=== PATIENT | female | born 1995 | race Caucasian/White ===

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

== ENCOUNTER → 2017-02-20 | Day surgery (SDC) | payer OTHER ==
[~2017-02-20] VITALS: Ht 165.1 cm; Wt 106.6 kg
[~2017-02-20] MED LIST changes: +AUGM500T34 PO; +ESMOLOL INJ 100MG/10ML VIAL As Ordered ONE; +GLYCOPYRROLATE INJ 0.2 MG/ML 2 ML VIAL As Ordered ONE; +HYDROmorphone HCL 2 MG/ML 1ML VIAL (J1170) As Ordered ONE; +IBUP-1022 PO; +KETOROLAC 30 MG/ML VIAL (J1885) IV ONE; +LIDOCAINE 2% INJ 100 MG/5 ML SDV (FOR ANES.) As Ordered ONE; +LIDOCAINE 2% W/ EPINEPHRINE 1.7 ML DENTAL INJ As Ordered ONE; +LR 1,000 ML IV ONE; +LR 1,000 ML IV SCH; +MELO7.5T7 PO; +MIDAZOLAM INJ 2 MG/2 ML VIAL (J2250) As Ordered ONE; +NEOSTIGMINE 1MG/ML 5 ML SYRINGE (J2710) As Ordered ONE; +ONDANSETRON 4MG/2ML VIAL (J2405) As Ordered ONE; +ONDANSETRON 4MG/2ML VIAL (J2405) IV PRN; +OXYMETAZOLINE NASAL SPRAY (AFRIN) As Ordered ONE; +PROPOFOL 200 MG/20 ML VIAL As Ordered ONE; +ROCURONIUM BROMIDE 50 MG/5 ML VIAL/SYRINGE As Ordered ONE; +SEVOFLURANE INHAL SOLN 250 ML BTL As Ordered ONE; +dexameTHASONE 4 MG/ML 1ML VIAL (J1100) As Ordered ONE; +fentaNYL 100 MCG/2 ML INJECTION (J3010) As Ordered ONE; +fentaNYL 250 MCG/5 ML INJECTION (J3010) As Ordered ONE
[2017-02-20 10:03] LABS: CONTROL LINE UCG INT CTR LINE PRESENT
[2017-02-20] MEDS: fentaNYL 100 MCG/2 ML INJECTION (J3010) IV PRN ×4 (19:37→20:23)
[2017-02-20 21:30] VITALS: BP 139/65
--- NOTE | 2017-02-21 12:14 | RO ---
DATE OF PROCEDURE: 02/20/2017 PREOPERATIVE DIAGNOSIS: Dental caries. POSTOPERATIVE DIAGNOSIS: Dental caries. PROCEDURE: fillings, root canals, post and core placement, crown prep with temporary crowns placement, sealants, prophy SURGEON: Dhruv Gibson DDS EYE PHYSICIAN: Adolfo ANESTHESIA: General DESCRIPTION OF PROCEDURE: The patient, Sierra Giles, was brought to the operating room without premedication and placed onto the operating table in the supine position. After all monitoring equipment was attached to patient, vital signs were checked and general anesthetic medicaments were delivered via inhalation. Nasal intubation proceeded, and tube extension was secured into position after breathing was monitored. Patient was then prepped and draped for dental surgical procedures. The intraoral cavity was inspected and suctioned free of gross secretions. One large moist throat pack was placed. Prophy of entire dentition completed. Sealant application completed on teeth #28 and 29. Decay removal, followed by composite condensation was completed on the mesial distal and buccal surface of teeth #2, 15 and 22. Occlusal and lingual surface of tooth #3. Mesial distal facial and lingual surface of teeth #6, 26 and 27. Mesial, occlusal, distal buccal and lingual surface of teeth #12 and 13. Distal, occlusal and lingual surface of tooth #14. Mesial occlusal and buccal surface of tooth #18. Mesial occlusal and distal surface of teeth #19 and 20. Distal occlusal surface of tooth #21. Buccal surface of tooth #25. Occlusal, buccal and lingual surface of teeth #30 and 31. Root canal treatment completed on teeth #4, 5 and 9. Post with core placement and cementation completed on teeth #4, 5, 7, 8, 9 and 10. [place] preparation completed on teeth #4, 5, 7, 8, 9, 10. Temporary crowns fabricated and cemented to teeth #4, 5, 7, 8, 9, 10. Fluoride varnish completed on entire dentition. Six radiographs pertaining to root canal procedures only were taken. Final removal of all gross fluids from both intraoral and extraoral structures. Bite block removed. Patient then left by dental team in the care of presiding anesthesiologist. Note, there was continuous removal of all gross fluids throughout the duration of all performed dental procedures. ALTHEA
== END ==
LOC: M SDC 08:44
PROVIDERS: ATTEND Dentist General Practice
DX: K02.9 Dental caries, unspecified (principal); F41.9 Anxiety disorder, unspecified; F84.0 Autistic disorder; G80.9 Cerebral palsy, unspecified; Z79.899 Other long term (current) drug therapy; J30.89 Other allergic rhinitis
CPT/HCPCS: 70310; 84703; D0220; D1351; D2330; D2331; D2332; D2392; D2393; D2952; D3310; D3320; D9223

== ENCOUNTER 2017-04-05 07:09 | Emergency (ER) | payer OTHER ==
[~2017-04-05] VITALS: Ht 165.1 cm; Wt 107.3 kg
[~2017-04-05 07:09] MED LIST changes: -AUGM500T34 PO; -ESMOLOL INJ 100MG/10ML VIAL As Ordered ONE; -GLYCOPYRROLATE INJ 0.2 MG/ML 2 ML VIAL As Ordered ONE; -HYDROmorphone HCL 2 MG/ML 1ML VIAL (J1170) As Ordered ONE; -IBUP-1022 PO; -KETOROLAC 30 MG/ML VIAL (J1885) IV ONE; -LIDOCAINE 2% INJ 100 MG/5 ML SDV (FOR ANES.) As Ordered ONE; -LIDOCAINE 2% W/ EPINEPHRINE 1.7 ML DENTAL INJ As Ordered ONE; -LR 1,000 ML IV ONE; -LR 1,000 ML IV SCH; -MIDAZOLAM INJ 2 MG/2 ML VIAL (J2250) As Ordered ONE; -NEOSTIGMINE 1MG/ML 5 ML SYRINGE (J2710) As Ordered ONE; -ONDANSETRON 4MG/2ML VIAL (J2405) As Ordered ONE; -ONDANSETRON 4MG/2ML VIAL (J2405) IV PRN; -OXYMETAZOLINE NASAL SPRAY (AFRIN) As Ordered ONE; -PROPOFOL 200 MG/20 ML VIAL As Ordered ONE; -ROCURONIUM BROMIDE 50 MG/5 ML VIAL/SYRINGE As Ordered ONE; -SEVOFLURANE INHAL SOLN 250 ML BTL As Ordered ONE; -dexameTHASONE 4 MG/ML 1ML VIAL (J1100) As Ordered ONE; -fentaNYL 100 MCG/2 ML INJECTION (J3010) As Ordered ONE; -fentaNYL 250 MCG/5 ML INJECTION (J3010) As Ordered ONE
[2017-04-05] MEDS ORDERED: MORPHINE 4 MG/ML 1ML SYRINGE IV ONE (07:45)
[2017-04-05] MEDS ORDERED: AMPICILLIN SOD/SULBACTAM SOD 3 GM in D5W MINI-BAG PLUS 100 ML IV ONE (07:45)
[2017-04-05 08:24] LABS: BASO % 0.3 % (0.0-1.0); EOS # 0.2 K/mm3 (0.0-0.50); EOS % 1.6 % (0.0-3.0); LARGE UNSTAINED CELL # 0.1 K/mm3 (0.0-0.4); LARGE UNSTAINED CELL % 0.9 % (0.0-4.0); LYMPH # 1.8 K/mm3 (1.5-6.5); LYMPH % 12.4 % (24.0-44.0); MEAN CORPUSCULAR HEMOGLOBIN 28.1 pg (27.0-33.0); MEAN CORPUSCULAR HGB CONC 33.3 g/dl (32.0-36.5); MEAN CORPUSCULAR VOLUME 84.4 fl (80.0-96.0); MONO # 0.7 K/mm3 (0.0-0.8); MONO % 5.3 % (0.0-5.0); NEUTROPHILS # 10.5 K/mm3 (1.8-7.7); NEUTROPHILS % 79.5 % (36.0-66.0); PLATELET COUNT, AUTOMATED 251 k/mm3 (150-450); RED CELL DISTRIBUTION WIDTH 13.4 % (11.5-14.5); WHITE BLOOD COUNT 13.2 K/mm3 (4.0-10.0)
[2017-04-05 08:45] LABS: ANION GAP 8 MEQ/L (8-16); BLOOD UREA NITROGEN 8 MG/DL (7-18); CALCIUM LEVEL 9.9 MG/DL (8.5-10.1); CARBON DIOXIDE LEVEL 27 MEQ/L (21-32); CHLORIDE LEVEL 105 MEQ/L (98-107); CREATININE FOR GFR 0.66 MG/DL (0.55-1.02); GLUCOSE, FASTING 95 MG/DL (70-105); POTASSIUM SERUM 4.7 MEQ/L (3.5-5.1); SODIUM LEVEL 140 MEQ/L (136-145)
[2017-04-05] MEDS ORDERED: ISOVUE-370 76% 100ML VIAL (Q9967) As Ordered ONE (08:57)
--- NOTE | 2017-04-05 09:47 | REP ---
CT NECK WITH CONTRAST: HISTORY: Facial swelling. CONTRAST: Isovue 370, 75 mL. There is soft tissue thickening along the buccal surface of the anterior and left lateral aspects of the maxilla and anterior body of the left mandible. Stranding is present in the overlying subcutaneous tissue. These findings are consistent with a phlegmon. The naso- and hypopharynx, larynx, and subglottic trachea are normal in appearance. The salivary glands are normal in size and density. An enlarged lymph node 1.4 cm in width is present in the right internal jugular chain at the level of the mookie- and hypopharynx. An enlarged lymph node 1.2 cm in width is present in the left internal jugular chain at the level of the mookie- and hypopharynx. Small lymph nodes less than 1 cm in size are present in the posterior triangles, submandibular and submental areas. The lung apices are clear. The visualized sinuses are clear. There is periapical lucency of several teeth in the maxilla. IMPRESSION: Findings consistent with a phlegmon along the buccal surface of the anterior and left maxilla and anterior body of the left mandible. Signed by Tayo Solitario MD 04/05/2017 10:03 A
[2017-04-05] MEDS ORDERED: IBUP-1022 PO (10:12)
[2017-04-05] MEDS ORDERED: AUGM500T34 PO (10:12)
[2017-04-05] MEDS ORDERED: KETOROLAC 30 MG/ML VIAL (J1885) IV ONE (10:15)
[2017-04-05 10:30] VITALS: BP 129/71
== END 2017-04-05 10:36 | disposition home or self-care (01) ==
LOC: M ED 07:09
DX: K04.7 Periapical abscess without sinus (principal); L02.01 Cutaneous abscess of face; F41.9 Anxiety disorder, unspecified
CPT/HCPCS: 70491; 80048; 81025; 85025; 96374; 96375; 99283; J1885; Q9967

== ENCOUNTER → 2017-07-03 | Outpatient (REF) | payer OTHER ==
[~2017-07-03] MED LIST changes: +AUGM500T34 PO; +IBUP-1022 PO
== END ==
LOC: M SFHCWAGY 15:34
PROVIDERS: ATTEND Nurse Practitioner Family
DX: R30.0 Dysuria (principal)

== ENCOUNTER → 2017-09-29 | Outpatient (CLI) | payer OTHER ==
[2017-09-29 17:28] LABS: BASO % 0.4 % (0.0-1.0); EOS # 0.2 10^3/uL (0.0-0.50); EOS % 1.6 % (0.0-3.0); HEMATOCRIT 44.2 % (36.0-47.0); HEMOGLOBIN 14.2 g/dl (12.0-16.0); IMMATURE GRANULOCYTE % 0.4 % (0-0); LYMPH # 1.8 10^3/uL (1.5-6.5); LYMPH % 18.2 % (24.0-44.0); MEAN CORPUSCULAR HEMOGLOBIN 26.7 pg (27.0-33.0); MEAN CORPUSCULAR HGB CONC 32.1 g/dl (32.0-36.5); MEAN CORPUSCULAR VOLUME 83.1 fl (80.0-96.0); MONO # 0.8 10^3/uL (0.0-0.8); MONO % 8.3 % (0.0-5.0); NEUTROPHILS # 6.9 10^3/uL (1.8-7.7); NEUTROPHILS % 71.1 % (36.0-66.0); PLATELET COUNT, AUTOMATED 320 10^3/uL (150-450); RED BLOOD COUNT 5.32 10^6/uL (4.00-5.40); RED CELL DISTRIBUTION WIDTH 13.1 % (11.5-14.5); WHITE BLOOD COUNT 9.7 10^3/uL (4.0-10.0)
[2017-09-29 17:52] LABS: ALBUMIN 4.3 GM/DL (3.2-5.2); ALKALINE PHOSPHATASE 72 U/L (45-117); ALT/SGPT 32 U/L (12-78); ANION GAP 10 MEQ/L (8-16); AST/SGOT 14 U/L (7-37); BILIRUBIN,TOTAL 0.4 MG/DL (0.2-1.0); BLOOD UREA NITROGEN 14 MG/DL (7-18); CALCIUM LEVEL 9.3 MG/DL (8.5-10.1); CARBON DIOXIDE LEVEL 24 MEQ/L (21-32); CHLORIDE LEVEL 107 MEQ/L (98-107); CREATININE FOR GFR 0.72 MG/DL (0.55-1.30); GLUCOSE, FASTING 81 MG/DL (70-100); LIPASE 95 U/L (73-393); POTASSIUM SERUM 4.6 MEQ/L (3.5-5.1); SODIUM LEVEL 141 MEQ/L (136-145); TOTAL PROTEIN 8.2 GM/DL (6.4-8.2)
== END ==
LOC: M WUC 12:25
DX: R10.9 Unspecified abdominal pain (principal)
CPT/HCPCS: 83690

== ENCOUNTER → 2018-01-27 | Outpatient (CLI) | payer OTHER ==
[2018-01-28 14:13] LABS: TISSUE TRANSGLUTAMINASE IgA 5 U/mL (0-3)
[2018-02-04 00:10] LABS: DQ2(DQ1A 0501/0505,DQB1 02XX) Positive (.); DQ8(DQA1 03XX, DQB1 0302) Negative (.); IGASUB3 16.9 mg/dL (13.4-97.9); IgA SERUM (part of Subclasses) 194 mg/dL (87-352)
== END ==
LOC: M LAB 09:39
DX: K90.0 Celiac disease (principal); B96.81 Helicobacter pylori [H. pylori] as the cause of diseases classified elsewhere
CPT/HCPCS: 82784

== ENCOUNTER 2018-04-01 13:41 | Emergency (ER) | payer OTHER | END 2018-04-01 15:27 | disposition home or self-care (01) | LOC: M ED 13:41 | DX: S93.402A Sprain of unspecified ligament of left ankle, initial encounter (principal); X50.9XXA Other and unspecified overexertion or strenuous movements or postures, initial encounter; Y92.832 Beach as the place of occurrence of the external cause; G80.9 Cerebral palsy, unspecified; F41.9 Anxiety disorder, unspecified; Z79.3 Long term (current) use of hormonal contraceptives | CPT/HCPCS: 73610 ==

== ENCOUNTER → 2018-06-10 | Outpatient (REF) | payer OTHER | LOC: M LAB REF 10:16 | DX: N30.01 Acute cystitis with hematuria (principal) | CPT/HCPCS: 87186 ==

== ENCOUNTER → 2018-08-07 | Outpatient (CLI) | payer OTHER | LOC: M LAB 10:30 | DX: B96.81 Helicobacter pylori [H. pylori] as the cause of diseases classified elsewhere (principal) ==

== ENCOUNTER 2018-08-13 10:39 | Emergency (ER) | payer OTHER ==
[2018-08-13] MEDS: METOCLOPRAMIDE INJ 10MG/2ML VIAL (J2765) IV (11:32)
[2018-08-13] MEDS: ACETAMINOPHEN 325 MG TAB PO (11:32)
[2018-08-13] MEDS: NS 1,000 ML IV (11:32)
[2018-08-13 11:53] LABS: BASO % 0.3 % (0.0-1.0); EOS # 0.1 10^3/uL (0.0-0.50); HEMATOCRIT 40.4 % (36.0-47.0); HEMOGLOBIN 13.1 g/dl (12.0-15.5); IMMATURE GRANULOCYTE % 0.6 % (0-3.0); LYMPH # 1.8 10^3/uL (1.5-6.5); LYMPH % 17.2 % (24.0-44.0); MEAN CORPUSCULAR HEMOGLOBIN 27.1 pg (27.0-33.0); MEAN CORPUSCULAR HGB CONC 32.4 g/dl (32.0-36.5); MEAN CORPUSCULAR VOLUME 83.6 fl (80.0-96.0); MONO # 0.7 10^3/uL (0.0-0.8); MONO % 7.2 % (0.0-5.0); NEUTROPHILS # 7.6 10^3/uL (1.8-7.7); NEUTROPHILS % 73.7 % (36.0-66.0); PLATELET COUNT, AUTOMATED 242 10^3/uL (150-450); RED BLOOD COUNT 4.83 10^6/uL (4.00-5.40); RED CELL DISTRIBUTION WIDTH 13.2 % (11.5-14.5); WHITE BLOOD COUNT 10.3 10^3/uL (4.0-10.0)
[2018-08-13 12:17] LABS: ANION GAP 7 MEQ/L (8-16); BLOOD UREA NITROGEN 10 MG/DL (7-18); CALCIUM LEVEL 8.6 MG/DL (8.5-10.1); CARBON DIOXIDE LEVEL 26 MEQ/L (21-32); CHLORIDE LEVEL 110 MEQ/L (98-107); CREATININE FOR GFR 0.74 MG/DL (0.55-1.30); GLOMERULAR FILTRATION RATE > 60.0 (>60); GLUCOSE, FASTING 88 MG/DL (70-100); POTASSIUM SERUM 4.1 MEQ/L (3.5-5.1); SODIUM LEVEL 143 MEQ/L (136-145)
== END 2018-08-13 12:35 | disposition home or self-care (01) ==
LOC: M ED 10:39
DX: G43.909 Migraine, unspecified, not intractable, without status migrainosus (principal); G80.9 Cerebral palsy, unspecified; Z79.1 Long term (current) use of non-steroidal anti-inflammatories (NSAID)
CPT/HCPCS: J2765

== ENCOUNTER → 2018-08-13 | Outpatient (REF) | payer OTHER ==
[~2018-08-13] MED LIST changes: +FIBEPOW PO; +LORA-243 PO; -LORA10TA2 PO; +MEDR1VL IM; +ZOFR4TAB14 PO
== END ==
LOC: M LAB REF 10:14
PROVIDERS: ATTEND Internal Medicine Gastroenterology
DX: G43.909 Migraine, unspecified, not intractable, without status migrainosus (principal); B96.81 Helicobacter pylori [H. pylori] as the cause of diseases classified elsewhere

== ENCOUNTER 2018-11-03 01:35 | Emergency (ER) | payer OTHER ==
[~2018-11-03] VITALS: Ht 165.1 cm; Wt 119.5 kg
[2018-11-03 01:37] VITALS: BP 175/74
[2018-11-03] MEDS ORDERED: MAGIC MOUTHWASH SUSPENSION BTL SSP ONE (05:00)
[2018-11-03] MEDS ORDERED: L-LY500T PO (05:06)
[2018-11-03] MEDS ORDERED: MAGICMW SSP (05:06)
[2018-11-04] MEDS ORDERED: LORA-243 (01:55)
[2018-11-04] MEDS ORDERED: AUGM500T34 PO (04:19)
[2018-11-05] MEDS ORDERED: AUGM875T28 PO (20:23)
== END 2018-11-03 05:28 | disposition home or self-care (01) ==
LOC: M ED 01:35
DX: K12.0 Recurrent oral aphthae (principal)

== ENCOUNTER 2018-11-04 01:47 | Emergency (ER) | payer OTHER ==
[~2018-11-04] VITALS: Ht 165.1 cm; Wt 54.3 kg
[2018-11-04 01:47] VITALS: BP 141/82
[~2018-11-04 01:47] MED LIST changes: +L-LY500T PO; +MAGICMW SSP
[2018-11-04] MEDS ORDERED: LORA-243 (01:55)
[2018-11-04] MEDS ORDERED: CETACAINE SPRAY 5GM TOP ONE (02:45)
[2018-11-04] MEDS ORDERED: BUPIVACAINE LIPOSOME/PF 1.3% 20ML VIAL (13.3MG/ML)(EXPAREL)(C9290 PER1MG) INFIL ONE (02:45)
[2018-11-04] MEDS ORDERED: AUGM500T34 PO (04:19)
[2018-11-05] MEDS ORDERED: AUGM875T28 PO (20:23)
== END 2018-11-04 04:26 | disposition home or self-care (01) ==
LOC: M ED 01:47
DX: K08.89 Other specified disorders of teeth and supporting structures (principal); G31.84 Mild cognitive impairment of uncertain or unknown etiology; F84.0 Autistic disorder
CPT/HCPCS: 64400; 99282; C9290

== ENCOUNTER → 2018-12-01 | Outpatient (REF) | payer OTHER ==
[~2018-12-01] MED LIST changes: +AUGM875T28 PO; +LORA-243
[2018-12-01 13:31] LABS: ALBUMIN 4.1 GM/DL (3.2-5.2); ALT/SGPT 37 U/L (12-78); BILIRUBIN,TOTAL 0.3 MG/DL (0.2-1.0); BLOOD UREA NITROGEN 16 MG/DL (7-18); CALCIUM LEVEL 9.5 MG/DL (8.5-10.1); CARBON DIOXIDE LEVEL 23 MEQ/L (21-32); CHLORIDE LEVEL 108 MEQ/L (98-107); CHOLESTEROL LEVEL 169 MG/DL (<200); CHOLESTEROL RISK RATIO 5.633 (<5); CREATININE FOR GFR 0.66 MG/DL (0.55-1.30); GLOMERULAR FILTRATION RATE > 60.0 (>60); GLUCOSE, FASTING 92 MG/DL (70-100); HDL CHOLESTEROL 30 MG/DL (>40); LDL CHOLESTEROL 121 MG/DL (<100); NON-HDL-C 139 MG/DL; POTASSIUM SERUM 4.4 MEQ/L (3.5-5.1); SODIUM LEVEL 138 MEQ/L (136-145); TOTAL PROTEIN 7.9 GM/DL (6.4-8.2); TRIGLYCERIDES LEVEL 88 MG/DL (<150)
== END ==
LOC: M LAB REF 12:09
PROVIDERS: ATTEND Family Medicine Addiction Medicine
DX: Z00.01 Encounter for general adult medical examination with abnormal findings (principal); E66.01 Morbid (severe) obesity due to excess calories

== ENCOUNTER → 2019-01-05 | Outpatient (CLI) | payer OTHER ==
--- NOTE | 2019-01-05 13:09 | REP ---
RIGHT ANKLE, FOUR VIEWS: HISTORY: Pain. There is no acute fracture or dislocation. The joint space is normal in appearance. IMPRESSION: There is no acute fracture or dislocation. Electronically Signed by Tayo Solitario MD 01/05/2019 01:19 P
== END ==
LOC: M WUC 12:25
PROVIDERS: ATTEND Physician Assistant
DX: M25.571 Pain in right ankle and joints of right foot (principal)

== ENCOUNTER → 2019-02-14 | Outpatient (REF) | payer OTHER ==
[~2019-02-14] MED LIST changes: +AZEL1SPR3; +KETO10TAB PO; +MONT10TA2
== END ==
LOC: M LAB REF 14:39
PROVIDERS: ATTEND Physician Assistant
DX: J00 Acute nasopharyngitis [common cold] (principal)

== ENCOUNTER 2019-02-17 19:29 | Emergency (ER) | payer OTHER ==
[~2019-02-17] VITALS: Ht 162.6 cm; Wt 117.7 kg
[~2019-02-17 19:29] MED LIST changes: -AZEL1SPR3; -KETO10TAB PO; -MONT10TA2
[2019-02-17] MEDS ORDERED: AZEL1SPR3 (19:34)
[2019-02-17] MEDS ORDERED: MONT10TA2 (19:34)
[2019-02-17] MEDS ORDERED: KETOROLAC TROMETHAMINE 10 MG TAB PO ONE (21:00)
[2019-02-17] MEDS ORDERED: AUGMENTIN 875 MG TAB PO ONE (21:00)
[2019-02-17] MEDS ORDERED: AUGM875T28 PO (21:00)
[2019-02-17] MEDS ORDERED: KETO10TAB PO (21:00)
[2019-02-17 21:09] VITALS: BP 138/78
== END 2019-02-17 21:22 | disposition home or self-care (01) ==
LOC: M ED 19:29
DX: K04.7 Periapical abscess without sinus (principal); G80.9 Cerebral palsy, unspecified; R51 Headache; F41.9 Anxiety disorder, unspecified

== ENCOUNTER → 2019-05-02 | Outpatient (CLI) | payer OTHER ==
[~2019-05-02] MED LIST changes: +AZEL1SPR3; +KETO10TAB PO; -L-LY500T PO; +L-LY500T15 PO; +MONT10TA2
[2019-05-02 12:01] LABS: BASO % 0.5 % (0.0-1.0); EOS # 0.1 10^3/uL (0.0-0.5); EOS % 1.8 % (0.0-3.0); HEMATOCRIT 41.7 % (36.0-47.0); HEMOGLOBIN 13.3 g/dl (12.0-15.5); LYMPH # 1.9 10^3/uL (1.5-5.0); LYMPH % 31.3 % (24.0-44.0); MEAN CORPUSCULAR HEMOGLOBIN 27.1 pg (27.0-33.0); MEAN CORPUSCULAR HGB CONC 31.9 g/dl (32.0-36.5); MEAN CORPUSCULAR VOLUME 84.9 fl (80.0-96.0); MONO # 0.5 10^3/uL (0.0-0.8); MONO % 7.4 % (0.0-5.0); NEUTROPHILS # 3.6 10^3/uL (1.5-8.5); NEUTROPHILS % 58.7 % (36.0-66.0); PLATELET COUNT, AUTOMATED 287 10^3/uL (150-450); RED BLOOD COUNT 4.91 10^6/uL (4.00-5.40); WHITE BLOOD COUNT 6.1 10^3/uL (4.0-10.0)
[2019-05-02 12:59] LABS: HEMOGLOBIN A1c 5.4 %
[2019-05-02 19:15] LABS: ALBUMIN 3.6 GM/DL (3.2-5.2); ALT/SGPT 43 U/L (12-78); BILIRUBIN,TOTAL 0.5 MG/DL (0.2-1.0); BLOOD UREA NITROGEN 9 MG/DL (7-18); CALCIUM LEVEL 9.2 MG/DL (8.5-10.1); CARBON DIOXIDE LEVEL 24 MEQ/L (21-32); CHLORIDE LEVEL 113 MEQ/L (98-107); CHOLESTEROL LEVEL 124 MG/DL (<200); CREATININE FOR GFR 0.78 MG/DL (0.55-1.30); FREE T4 1.04 NG/DL (0.76-1.46); GLOMERULAR FILTRATION RATE > 60.0 (>60); GLUCOSE, FASTING 79 MG/DL (70-100); HDL CHOLESTEROL 25 MG/DL (>40); LDL CHOLESTEROL 86 MG/DL (<100); NON-HDL-C 99 MG/DL; POTASSIUM SERUM 4.1 MEQ/L (3.5-5.1); SODIUM LEVEL 143 MEQ/L (136-145); THYROID STIMULATING HORMONE 0.937 uIU/ML (0.358-3.740); TRIGLYCERIDES LEVEL 67 MG/DL (<150)
[2019-05-04 15:34] LABS: TOTAL 25(OH) VITAMIN D 24.5 NG/ML (30.0-100.0)
== END ==
LOC: M LAB 10:51
PROVIDERS: ATTEND Physician Assistant
DX: Z00.01 Encounter for general adult medical examination with abnormal findings (principal)

== ENCOUNTER 2019-07-24 16:38 | Emergency (ER) | payer OTHER ==
[~2019-07-24] VITALS: Ht 157.5 cm; Wt 116.2 kg
[2019-07-24 16:38] VITALS: BP 159/78
[2019-07-24] MEDS ORDERED: FLUO20CA19 (16:43)
[2019-07-24] MEDS ORDERED: KETOROLAC TROMETHAMINE 10 MG TAB PO ONE (17:15)
[2019-07-24] MEDS ORDERED: BACLOFEN 10 MG TAB PO ONE (17:15)
[2019-07-24] MEDS ORDERED: CYCL10TA PO (17:53)
[2019-07-24] MEDS ORDERED: NAPR-837 PO (17:53)
== END 2019-07-24 18:00 | disposition home or self-care (01) ==
LOC: M ED 16:38
DX: S23.3XXA Sprain of ligaments of thoracic spine, initial encounter (principal); S33.5XXA Sprain of ligaments of lumbar spine, initial encounter; E66.9 Obesity, unspecified; W08.XXXA Fall from other furniture, initial encounter; Y92.9 Unspecified place or not applicable; Y93.9 Activity, unspecified; Y99.9 Unspecified external cause status; G89.29 Other chronic pain; M54.9 Dorsalgia, unspecified; R51 Headache; F41.9 Anxiety disorder, unspecified; Z79.899 Other long term (current) drug therapy

== ENCOUNTER 2020-08-23 15:49 | Emergency (ER) | payer OTHER ==
[~2020-08-23] VITALS: Ht 162.6 cm; Wt 118.7 kg
[~2020-08-23 15:49] MED LIST changes: +CYCL-707 PO; +DEXT350P PO; -FIBEPOW PO; +FLUO20CA22; -MONT10TA2; +MONT5TAB2; +NAPR-837 PO
[2020-08-23] MEDS ORDERED: LAMO25TA4 PO (15:55)
[2020-08-23] MEDS ORDERED: DEPO150I12 IM (15:55)
[2020-08-23] MEDS ORDERED: VITA200015 PO (15:55)
[2020-08-23] MEDS ORDERED: KETOROLAC 60MG 2ML VIAL IM ONE (17:30)
[2020-08-23] MEDS ORDERED: LIDOCAINE 5% (LIDODERM) PATCH TD ONE (17:30)
[2020-08-23] MEDS ORDERED: methocarbamoL 750 MG TAB PO ONE (17:30)
--- NOTE | 2020-08-23 17:59 | REP ---
INDICATION: fall months ago, persistant pain. COMPARISON: Comparison radiographs are from October 22, 2011.. TECHNIQUE: Five views. FINDINGS: Lumbar vertebral body heights are preserved. Alignment is normal. Pedicles and posterior elements are intact. There is no evidence of spondylolysis or spondylolisthesis. No fracture or collapse is seen. Disc spaces are maintained. Psoas margins are symmetric. Sacrum and SI joints are unremarkable. IMPRESSION: Negative lumbar spine radiographs. <Electronically signed by Matt Lema > 08/23/20 [id number]
--- NOTE | 2020-08-23 18:00 | REP ---
INDICATION: fall months ago, persistant pain. COMPARISON: Comparison radiographs October 22, 2011.. TECHNIQUE: Three views. FINDINGS: Thoracic vertebral body heights are preserved. Alignment is normal. Pedicles and posterior elements are intact. No paravertebral soft tissue hematoma is seen. Disc spaces are maintained. IMPRESSION: Negative thoracic spine radiographs. No fracture seen. <Electronically signed by Matt Lema > 08/23/20 [id number]
[2020-08-23] MEDS ORDERED: ASPE4PAD TOP (18:40)
[2020-08-23 18:45] VITALS: BP 127/82
[2020-08-23] MEDS ORDERED: **NOTE PATIENT COMMENT** MISC XX SCH (21:00)
== END 2020-08-23 18:52 | disposition home or self-care (01) ==
LOC: M ED 15:49
DX: M54.9 Dorsalgia, unspecified (principal); G80.9 Cerebral palsy, unspecified; R51.9 Headache, unspecified; Z79.899 Other long term (current) drug therapy; Z79.3 Long term (current) use of hormonal contraceptives
CPT/HCPCS: 72072; 72110; 96372; 99283; J1885

== ENCOUNTER 2021-02-19 18:16 | Emergency (ER) | payer OTHER ==
[~2021-02-19] VITALS: Ht 180.3 cm; Wt 114.8 kg
[~2021-02-19 18:16] MED LIST changes: +ASPE4PAD TOP; +DEPO150I12 IM; +LAMO25TA4 PO; +MONT10TA10; -MONT5TAB2; +VITA200015 PO
[2021-02-19 18:17] VITALS: BP 138/64
== END 2021-02-19 22:36 | disposition left against medical advice (07) ==
LOC: M ED 18:16
DX: Z53.21 Procedure and treatment not carried out due to patient leaving prior to being seen by health care provider (principal)

== ENCOUNTER 2021-03-06 17:27 | Emergency (ER) | payer OTHER ==
[~2021-03-06] VITALS: Ht 165.1 cm; Wt 113.9 kg
[~2021-03-06 17:27] MED LIST changes: -MOME50SP; -MONT10TA10; +MONT10TA97; +NASO50SP3
[2021-03-06] MEDS ORDERED: IBUP80TA (17:37)
[2021-03-06] MEDS ORDERED: KETOROLAC 30 MG/ML 1ML VIAL IV ONE (21:05)
[2021-03-06] MEDS ORDERED: diphenhydrAMINE 50MG/ML VIAL (J1200) IV ONE (21:05)
[2021-03-06] MEDS ORDERED: NS 1,000 ML IV ONE (21:05)
[2021-03-06] MEDS ORDERED: METOCLOPRAMIDE INJ 10MG/2ML VIAL (J2765 PER 1) IV ONE (21:05)
[2021-03-06 23:32] VITALS: BP 112/74
== END 2021-03-06 23:48 | disposition home or self-care (01) ==
LOC: M ED 17:27
DX: G43.909 Migraine, unspecified, not intractable, without status migrainosus (principal)
CPT/HCPCS: 96361; 96374; 96375; 99284; J1200; J1885; J2765

== ENCOUNTER → 2021-06-09 | Outpatient (CLI) | payer OTHER ==
[~2021-06-09] MED LIST changes: +IBUP80TA; +MOME50SP; +MONT10TA10; -MONT10TA97; -NASO50SP3
[2021-06-09 14:19] LABS: BASO % 0.4 % (0.0-1.0); EOS # 0.2 10^3/uL (0.0-0.5); HEMATOCRIT 42.6 % (36.0-47.0); HEMOGLOBIN 13.6 g/dl (12.0-15.5); LYMPH # 2.1 10^3/uL (1.5-5.0); LYMPH % 28.4 % (24.0-44.0); MEAN CORPUSCULAR HEMOGLOBIN 27.4 pg (27.0-33.0); MEAN CORPUSCULAR HGB CONC 31.9 g/dl (32.0-36.5); MEAN CORPUSCULAR VOLUME 85.7 fl (80.0-96.0); MONO # 0.6 10^3/uL (0.0-0.8); MONO % 8.3 % (2.0-8.0); NEUTROPHILS # 4.5 10^3/uL (1.5-8.5); NEUTROPHILS % 60.6 % (36.0-66.0); PLATELET COUNT, AUTOMATED 311 10^3/uL (150-450); RED BLOOD COUNT 4.97 10^6/uL (4.00-5.40); WHITE BLOOD COUNT 7.4 10^3/uL (4.0-10.0)
[2021-06-09 14:45] LABS: ALBUMIN 3.7 GM/DL (3.2-5.2); ALT/SGPT 29 U/L (12-78); BILIRUBIN,TOTAL 0.3 MG/DL (0.2-1.0); BLOOD UREA NITROGEN 9 MG/DL (7-18); C REACTIVE PROTEIN QUANTITATIV 0.78 MG/DL (0.00-0.30); CALCIUM LEVEL 9.7 MG/DL (8.5-10.1); CARBON DIOXIDE LEVEL 26 MEQ/L (21-32); CHLORIDE LEVEL 110 MEQ/L (98-107); CREATININE FOR GFR 0.79 MG/DL (0.55-1.30); GLOMERULAR FILTRATION RATE > 60.0 (>60); GLUCOSE, FASTING 98 MG/DL (70-100); POTASSIUM SERUM 4.2 MEQ/L (3.5-5.1); SODIUM LEVEL 140 MEQ/L (136-145); TOTAL PROTEIN 7.2 GM/DL (6.4-8.2)
[2021-06-09 14:52] LABS: TOTAL 25(OH) VITAMIN D 18.7 NG/ML (30.0-100.0)
[2021-06-09 15:10] LABS: ERYTHROCYTE SEDIMENTATION RATE 16 mm/hr (0-20)
== END ==
LOC: M LAB 12:45
PROVIDERS: ATTEND Nurse Practitioner Family
DX: Z00.00 Encounter for general adult medical examination without abnormal findings (principal); R51.9 Headache, unspecified; E55.9 Vitamin D deficiency, unspecified

== ENCOUNTER 2022-01-29 20:09 | Emergency (ER) | payer OTHER ==
[~2022-01-29] VITALS: Ht 162.6 cm; Wt 108.7 kg
[~2022-01-29 20:09] MED LIST changes: -MOME50SP; -MONT10TA10; +MONT10TA97; +NASO50SP3; -VITA200015 PO; +VITA200035 PO
[2022-01-29 20:10] VITALS: BP 148/72
[2022-01-29] MEDS ORDERED: CETI-24 PO (20:22)
[2022-01-29] MEDS ORDERED: PROP10TA56 PO (20:23)
[2022-01-30] MEDS ORDERED: CEPH500C PO (00:31)
== END 2022-01-30 00:41 | disposition home or self-care (01) ==
LOC: M ED 20:09
DX: L73.9 Follicular disorder, unspecified (principal); F41.9 Anxiety disorder, unspecified; G80.9 Cerebral palsy, unspecified; R51.9 Headache, unspecified; Z79.899 Other long term (current) drug therapy

== ENCOUNTER → 2022-04-09 | Outpatient (CLI) | payer OTHER ==
[~2022-04-09] MED LIST changes: +CEPH500C PO; +CETI-24 PO; +PROP10TA56 PO
== END ==
LOC: M PLAIMG 09:08
PROVIDERS: ATTEND Nurse Practitioner Family
DX: R51.9 Headache, unspecified (principal)

== ENCOUNTER → 2022-10-01 | Outpatient (REF) | payer OTHER | LOC: M SFHCWAGY 17:03 | PROVIDERS: ATTEND Obstetrics & Gynecology | DX: Z12.4 Encounter for screening for malignant neoplasm of cervix (principal); Z11.3 Encounter for screening for infections with a predominantly sexual mode of transmission ==

== ENCOUNTER → 2022-12-20 | Outpatient (REF) | payer OTHER | LOC: M LAB REF 18:01 | PROVIDERS: ATTEND Physician Assistant | DX: L70.0 Acne vulgaris (principal); L73.9 Follicular disorder, unspecified ==

== ENCOUNTER 2023-06-06 09:02 | Emergency (ER) | payer OTHER ==
[~2023-06-06] VITALS: Ht 162.6 cm; Wt 110.5 kg
[2023-06-06 09:04] VITALS: TEMP 97.5
[2023-06-06 12:21] VITALS: BP 130/79; O2SAT 99
== END 2023-06-06 12:24 | disposition home or self-care (01) ==
LOC: M ED 09:03 → EEVIPCON 09:03 → M ED 12:24
DX: R23.8 Other skin changes (principal); Z79.899 Other long term (current) drug therapy

== ENCOUNTER → 2024-02-29 | Outpatient (REF) | payer OTHER ==
[~2024-02-29] MED LIST changes: +AMOX500C PO; +FLUO-365; -FLUO20CA22; +LIDO100S29 PO
== END ==
LOC: M LAB REF 17:24
PROVIDERS: ATTEND Physician Assistant Medical
DX: J02.9 Acute pharyngitis, unspecified (principal)

== ENCOUNTER 2024-03-01 17:02 | Emergency (ER) | payer OTHER ==
[~2024-03-01] VITALS: Ht 162.6 cm; Wt 122.3 kg
[~2024-03-01 17:02] MED LIST changes: -AMOX500C PO; -LIDO100S29 PO
[2024-03-01] MEDS ORDERED: ISOVUE-370 76% 100ML VIAL As Ordered ONE (17:39)
[2024-03-01 18:19] LABS: BASO % 0.2 % (0.0-1.0); EOS # 0.1 10^3/uL (0.0-0.5); EOS % 0.3 % (0.0-3.0); HEMATOCRIT 41.6 % (36.0-47.0); HEMOGLOBIN 13.7 g/dl (12.0-15.5); LYMPH # 1.5 10^3/uL (1.5-5.0); LYMPH % 8.5 % (24.0-44.0); MEAN CORPUSCULAR HEMOGLOBIN 27.9 pg (27.0-33.0); MEAN CORPUSCULAR HGB CONC 32.9 g/dl (32.0-36.5); MEAN CORPUSCULAR VOLUME 84.7 fl (80.0-96.0); MONO # 1.8 10^3/uL (0.0-0.8); MONO % 10.2 % (2.0-8.0); NEUTROPHILS # 14.5 10^3/uL (1.5-8.5); NEUTROPHILS % 80.3 % (36.0-66.0); PLATELET COUNT, AUTOMATED 278 10^3/uL (150-450); RED BLOOD COUNT 4.91 10^6/uL (4.00-5.40)
[2024-03-01] MEDS: dexAMETHasone 20MG/5ML VIAL IV ONE (18:31)
[2024-03-01] MEDS: NS 1,000 ML IV ONE (18:32)
[2024-03-01] MEDS: ACETAMINOPHEN *IV* 1,000 MG in IV 1 EA IV ONE (18:33)
[2024-03-01 18:44] LABS: ERYTHROCYTE SEDIMENTATION RATE 69 mm/hr (0-20)
[2024-03-01] MEDS ORDERED: LIDO100S29 PO (20:25)
[2024-03-01] MEDS ORDERED: NAPR-837 PO (20:25)
[2024-03-01] MEDS ORDERED: AMOX500C PO (20:25)
[2024-03-01] MEDS: AMOXICILLIN 500 MG CAP PO ONE (20:34)
[2024-03-01 20:42] VITALS: BP 122/73; TEMP 96.5; O2SAT 99
== END 2024-03-01 20:46 | disposition home or self-care (01) ==
LOC: M ED 17:02
DX: J02.0 Streptococcal pharyngitis (principal); Z79.2 Long term (current) use of antibiotics; Z79.899 Other long term (current) drug therapy
CPT/HCPCS: 70491; 80047; 83605; 84702; 85025; 85652; 86140; 87880; 96365; 96366; 96374; 99284; J0131; J1100; Q9967

== ENCOUNTER 2024-08-03 16:47 | Emergency (ER) | payer OTHER ==
[~2024-08-03] VITALS: Ht 162.6 cm; Wt 115.7 kg
[~2024-08-03 16:47] MED LIST changes: +AMOX500C PO; +LIDO100S29 PO
[2024-08-03 19:37] VITALS: BP 136/75; TEMP 97.8; O2SAT 97
== END 2024-08-03 20:28 | disposition left against medical advice (07) ==
LOC: M ED 16:47
DX: Z53.21 Procedure and treatment not carried out due to patient leaving prior to being seen by health care provider (principal)

== ENCOUNTER → 2024-09-28 | Outpatient (CLI) | payer OTHER | LOC: M RAD 09:43 | PROVIDERS: ATTEND Internal Medicine | DX: Z91.81 History of falling (principal); M54.50 Low back pain, unspecified; T58.01XA Toxic effect of carbon monoxide from motor vehicle exhaust, accidental (unintentional), initial encounter ==

== ENCOUNTER → 2025-02-25 | Outpatient (REF) | payer OTHER ==
[~2025-02-25] MED LIST changes: +LAMO-18 PO; -LAMO25TA4 PO
== END ==
LOC: M SFHCDERM 16:37
PROVIDERS: ATTEND Physician Assistant
DX: L02.92 Furuncle, unspecified (principal)